=== PATIENT | female | born 1970 | race Caucasian/White ===

== ENCOUNTER 2021-04-18 07:22 | Day surgery (SDC) | payer BC, SELFPAY ==
[~2021-04-18] VITALS: Ht 170.2 cm; Wt 128.8 kg
[~2021-04-18 07:22] MED LIST: CEFAZOLIN 1 GM IVPB PREMIX 50 ML IV ONE
[2021-04-18 07:46] LABS: HCG,QUAL RESULT NEGATIVE (NEGATIVE)
[2021-04-18] MEDS ORDERED: DEXAMETHASONE SOD PHOSPHATE 4 MG/ML VIAL IVP ONE (09:16)
[2021-04-18] MEDS ORDERED: DESFLURANE 15 MIN GAS INH ONE (09:16)
[2021-04-18] MEDS ORDERED: BUPIVACAINE /PF 0.25% 30 ML VIAL INJ ONE (09:16)
[2021-04-18] MEDS ORDERED: fentaNYL CITRATE 250 MCG/5 ML AMP IV ONE (09:16)
[2021-04-18] MEDS ORDERED: LR 1,000 ML IV.SOLN IV ONE (09:16)
[2021-04-18] MEDS ORDERED: ROCURONIUM BROMIDE 10 MG/ML (ZEMURON) IV ONE (09:16)
[2021-04-18] MEDS ORDERED: MIDAZOLAM HCL 5 MG/5 ML VIAL IVP ONE (09:16)
[2021-04-18] MEDS ORDERED: LIDOCAINE 2%, 20 ML MDV INJ ONE (09:16)
[2021-04-18] MEDS ORDERED: ONDANSETRON HCL 4 MG/2 ML VIAL IVP ONE (09:16)
[2021-04-18] MEDS ORDERED: SUGAMMADEX SODIUM 200 MG/2 ML VIAL IV ONE (09:16)
[2021-04-18] MEDS ORDERED: PROPOFOL 200MG/ 20ML VIAL (DIPRIVAN) IV ONE (09:16)
[2021-04-18] MEDS ORDERED: MEPERIDINE HCL/PF 25 MG/ML DISP.SYRIN IVP PRN (10:15)
[2021-04-18] MEDS ORDERED: METOCLOPRAMIDE HCL 10 MG/2 ML VIAL IVP PRN (10:15)
[2021-04-18] MEDS ORDERED: HYDROmorphone 1 MG/ML INJ. CARTRIDGE IVP PRN ×3 (10:15→10:45)
[2021-04-18] MEDS ORDERED: MIDAZOLAM HCL 2 MG/2 ML VIAL (VERSED) IVP PRN (10:15)
[2021-04-18] MEDS ORDERED: ONDANSETRON HCL 4 MG/2 ML VIAL IVP PRN (10:15)
[2021-04-18] MEDS ORDERED: LABETALOL 100 MG/ 20ML VIAL IVP PRN (10:15)
[2021-04-18] MEDS ORDERED: hydrALAZINE HCL 20 MG/ML VIAL IVP PRN (10:15)
[2021-04-18] MEDS ORDERED: LR 1,000 ML IV SCH (10:15)
[2021-04-18] MEDS ORDERED: HYDROcodone/ACETAMIN 5-325 MG TAB (NORCO/ VICODIN) PO PRN ×2 (10:45)
[2021-04-18] MEDS ORDERED: D5/0.45 NS 1,000 ML IV SCH (10:45)
[2021-04-18] MEDS ORDERED: ONDANSETRON HCL 4 MG/2 ML VIAL ONE (11:21)
[2021-04-18] MEDS ORDERED: METOCLOPRAMIDE HCL 10 MG/2 ML VIAL ONE (11:54)
[2021-04-18 16:05] VITALS: BP_SYST 113
== END 2021-04-18 13:00 | disposition home or self-care (01) ==
LOC: SDS 07:22 → SMU 07:27 → SDS 13:00
PROVIDERS: ATTEND Colon & Rectal Surgery
DX: K80.10 Calculus of gallbladder with chronic cholecystitis without obstruction (principal); I10 Essential (primary) hypertension; E11.9 Type 2 diabetes mellitus without complications; E66.01 Morbid (severe) obesity due to excess calories; E78.2 Mixed hyperlipidemia; Z20.822 Contact with and (suspected) exposure to COVID-19; Z79.899 Other long term (current) drug therapy
CPT/HCPCS: 47563; 74300; 84703; 88304; C1727; C1758; C9399; J0690; J1100; J2001; J2250; J2405; J2704; J2765; J3010; J3490; J7120; Q9967; U0003; 76000

== ENCOUNTER 2021-09-12 05:54 | Day surgery (SDC) | payer BC, SELFPAY ==
[~2021-09-12] VITALS: Ht 170.2 cm; Wt 128.8 kg
[2021-09-12 06:32] LABS: HCG,QUAL RESULT NEGATIVE (NEGATIVE)
[2021-09-12] MEDS ORDERED: WATER FOR IRRIGATION,STERILE 1,000 ML IRRIG.SOLN IR ONE (07:30)
[2021-09-12] MEDS ORDERED: SUGAMMADEX SODIUM 200 MG/2 ML VIAL IV ONE (07:30)
[2021-09-12] MEDS ORDERED: DESFLURANE 15 MIN GAS INH ONE (07:30)
[2021-09-12] MEDS ORDERED: LR 1,000 ML IV.SOLN IV ONE (07:30)
[2021-09-12] MEDS ORDERED: ONDANSETRON HCL 4 MG/2 ML VIAL IVP ONE (07:30)
[2021-09-12] MEDS ORDERED: LIDOCAINE 1% 10 MG/ML, 20 ML MDV INJ ONE (07:30)
[2021-09-12] MEDS ORDERED: ROCURONIUM BROMIDE 10 MG/ML (ZEMURON) IV ONE (07:30)
[2021-09-12] MEDS ORDERED: PROPOFOL 200MG/ 20ML VIAL (DIPRIVAN) IV ONE (07:30)
[2021-09-12] MEDS ORDERED: NS 1000 ML IV.SOLN IV ONE (07:30)
[2021-09-12] MEDS ORDERED: MIDAZOLAM HCL 5 MG/5 ML VIAL IVP ONE (07:30)
[2021-09-12] MEDS ORDERED: fentaNYL CITRATE/PF 100 MCG/2 ML AMP IVP ONE (07:30)
[2021-09-12] MEDS ORDERED: DEXAMETHASONE SOD PHOSPHATE 4 MG/ML VIAL IVP ONE (07:30)
[2021-09-12] MEDS ORDERED: MEPERIDINE HCL/PF 25 MG/ML DISP.SYRIN IVP PRN (08:00)
[2021-09-12] MEDS ORDERED: LR 1,000 ML IV SCH (08:00)
[2021-09-12] MEDS ORDERED: HYDROmorphone 1 MG/ML INJ. CARTRIDGE IVP PRN ×2 (08:00)
[2021-09-12] MEDS ORDERED: MIDAZOLAM HCL 2 MG/2 ML VIAL (VERSED) IVP PRN (08:00)
[2021-09-12] MEDS ORDERED: METOCLOPRAMIDE HCL 10 MG/2 ML VIAL IVP PRN (08:00)
[2021-09-12] MEDS ORDERED: ACETAMINOPHEN I.V. 1000 MG 100 ML IV ONE (08:17)
[2021-09-12] MEDS ORDERED: OXYCODONE/ACETAMINOPHEN 5-325 TABLET PO PRN ×2 (09:00)
[2021-09-12] MEDS ORDERED: ONDANSETRON HCL 4 MG/2 ML VIAL IM PRN (09:00)
[2021-09-12] MEDS ORDERED: IBUPROFEN 800 MG TABLET PO PRN (09:00)
[2021-09-12 10:24] VITALS: BP_SYST 111
== END 2021-09-12 11:22 | disposition home or self-care (01) ==
LOC: SDS 05:54
PROVIDERS: ATTEND Obstetrics & Gynecology
DX: N92.0 Excessive and frequent menstruation with regular cycle (principal); N93.9 Abnormal uterine and vaginal bleeding, unspecified; D25.9 Leiomyoma of uterus, unspecified; E66.01 Morbid (severe) obesity due to excess calories; E78.2 Mixed hyperlipidemia; I10 Essential (primary) hypertension; Z79.899 Other long term (current) drug therapy; Z20.822 Contact with and (suspected) exposure to COVID-19
CPT/HCPCS: 36415; 58563; 84703; 86886; 86900; 86901; 88305; C1819; J0131; J1100; J2001; J2250; J2405; J2704; J3010; J3490; J7030; J7120; U0003